=== PATIENT | male | born 1990 | race Native Hawaiian/Other Pacific Islander ===

== ENCOUNTER 2023-08-25 22:17 | Emergency (ER) | payer OTHER ==
[~2023-08-25] VITALS: Ht 167.6 cm; Wt 61.2 kg
[2023-08-25 22:17] VITALS: TEMP 98.1
[2023-08-25] MEDS ORDERED: METHYLPREDNISOLONE SOD SUCC 125 MG ML INJ ONE (22:42)
[2023-08-25] MEDS ORDERED: MORPHINE SULFATE 10 MG/10 ML ONE (22:43)
[2023-08-25] MEDS ORDERED: METHYLPREDNISOLONE SOD SUCC 125 MG IV ONE (22:48)
[2023-08-25] MEDS ORDERED: MORPHINE SULFATE 2 MG ML ONE (22:49)
[2023-08-25] MEDS ORDERED: MORPHINE SULFATE 2 MG ML INJ ONE (23:08)
[2023-08-25 23:47] VITALS: BP 139/75
== END 2023-08-25 23:47 ==
LOC: ED 22:17
DX: R10.31 Right lower quadrant pain (principal); R10.11 Right upper quadrant pain; K50.90 Crohn's disease, unspecified, without complications
CPT/HCPCS: 96374; 96375; 99284; J2270; J2930